=== PATIENT | male | born 1985 | race Hispanic/Latino ===

== ENCOUNTER 2016-09-01 12:22 | Emergency (ER) | payer SELFPAY ==
[~2016-09-01] VITALS: Ht 177.8 cm; Wt 87.4 kg
[2016-09-01 17:08] LABS: POINT-OF-CARE METER ID UU13113800
[2016-09-01] MEDS ORDERED: METFORMIN HCL500 MG PO (18:21)
[2016-09-01 18:35] LABS: EOSINOPHIL (%) 2.2 % (0-5); EOSINOPHIL COUNT 0.2 K/uL (0-0.3); HEMATOCRIT 35.6 % (38.0-50.0); IMMATURE GRANULOCYTE (%) 0.2 % (0.0-0.7); MCH 27.5 PG (29.0-34.0); MCHC 33.4 G/DL (30.0-36.0); MCV 82.2 FL (86-99); MEAN PLAT.VOLUME 11.4 uM^3 (9.0-12.4); MONOCYTE (%) 4.4 % (3-12); MONOCYTE COUNT 0.4 K/uL (0-0.8); NEUTROPHIL (%) 68.7 % (45-76); NEUTROPHIL COUNT 5.6 K/uL (1.8-6.4); PLATELET COUNT 204 K/uL (156-360); RBC DIS.WIDTH-CV 12.6 % (11.8-14.6); RBC DIS.WIDTH-SD 38.2 % (39-53); RED BLOOD COUNT 4.33 M/uL (4.00-5.50); WHITE BLOOD COUNT 8.1 K/uL (4.1-10.2)
[2016-09-01 18:43] LABS: CHLORIDE 105 mEq/L (99-109); POTASSIUM 4.2 mEq/L (3.7-5.4); SODIUM 140 mEq/L (136-147)
[2016-09-01 18:46] LABS: ANION GAP 6 MEQ/L (2-14); ERTH.SED.RATE 74 MM/HR (0-15); GLUCOSE 235 mg/dL (70-99)
[2016-09-01 18:48] LABS: GFR ESTIMATE (CALCULATED) > 59 mL/min/
[2016-09-01 18:49] LABS: UREA NITROGEN (BUN) 12 mg/dL (9-23)
[2016-09-01 19:09] LABS: C-REACTIVE PROTEIN 44.4 MG/L (0-10)
[2016-09-01 21:01] VITALS: BP 109/67
== END 2016-09-01 21:13 | disposition home or self-care (01) ==
LOC: EME 12:22
PROVIDERS: Physician Assistant
DX: M86.9 Osteomyelitis, unspecified (principal); E11.621 Type 2 diabetes mellitus with foot ulcer; L97.519 Non-pressure chronic ulcer of other part of right foot with unspecified severity
CPT/HCPCS: 73630; 80048; 82948; 85025; 85651; 86140; 99281; 99285; J3370

== ENCOUNTER 2016-09-12 16:14 | Emergency (ER) | payer OTHER ==
[~2016-09-12] VITALS: Ht 177.8 cm; Wt 91.6 kg
[~2016-09-12 16:14] MED LIST: METFORMIN HCL500 MG PO
[2016-09-12 17:41] LABS: HEMATOCRIT 32.7 % (38.0-50.0); MCH 27.4 PG (29.0-34.0); MCHC 33.6 G/DL (30.0-36.0); MCV 81.5 FL (86-99); MEAN PLAT.VOLUME 10.1 uM^3 (9.0-12.4); PLATELET COUNT 223 K/uL (156-360); RBC DIS.WIDTH-CV 12.8 % (11.8-14.6); RBC DIS.WIDTH-SD 36.7 % (39-53); RED BLOOD COUNT 4.01 M/uL (4.00-5.50); WHITE BLOOD COUNT 8.4 K/uL (4.1-10.2)
[2016-09-12 17:57] LABS: CHLORIDE 107 mEq/L (99-109); POTASSIUM 3.8 mEq/L (3.7-5.4); SODIUM 143 mEq/L (136-147)
[2016-09-12 17:59] LABS: GLUCOSE 171 mg/dL (70-99)
[2016-09-12 18:00] LABS: ANION GAP 7 MEQ/L (2-14)
[2016-09-12 18:03] LABS: GFR ESTIMATE (CALCULATED) > 59 mL/min/
[2016-09-12 18:04] LABS: UREA NITROGEN (BUN) 10 mg/dL (9-23)
[2016-09-12 18:36] VITALS: BP 158/97
== END 2016-09-12 18:39 | disposition home or self-care (01) ==
LOC: EME 16:14
PROVIDERS: Physician Assistant
DX: R03.0 Elevated blood-pressure reading, without diagnosis of hypertension (principal); R51 Headache; Z79.2 Long term (current) use of antibiotics; Z87.39 Personal history of other diseases of the musculoskeletal system and connective tissue; E11.9 Type 2 diabetes mellitus without complications
CPT/HCPCS: 70450; 80048 91; 85027; 99281; 99282

== ENCOUNTER 2016-10-20 03:35 | Observation (INO) | payer OTHER ==
[~2016-10-20] VITALS: Ht 177.8 cm; Wt 84.6 kg
[~2016-10-20 03:35] MED LIST changes: +HYZAAR 50-121 TABLET PO
[2016-10-20 04:25] LABS: HEMATOCRIT 40.9 % (38.0-50.0); MCH 26.4 PG (29.0-34.0); MCHC 33.3 G/DL (30.0-36.0); MCV 79.3 FL (86-99); MEAN PLAT.VOLUME 11.4 uM^3 (9.0-12.4); PLATELET COUNT 229 K/uL (156-360); RBC DIS.WIDTH-CV 12.2 % (11.8-14.6); RBC DIS.WIDTH-SD 35.1 % (39-53); RED BLOOD COUNT 5.16 M/uL (4.00-5.50); WHITE BLOOD COUNT 10.1 K/uL (4.1-10.2)
[2016-10-20 04:35] LABS: CHLORIDE 98 mEq/L (99-109); POTASSIUM 4.5 mEq/L (3.7-5.4); SODIUM 134 mEq/L (136-147)
[2016-10-20 04:38] LABS: GLUCOSE 270 mg/dL (70-99)
[2016-10-20 04:39] LABS: ANION GAP 18 MEQ/L (2-14)
[2016-10-20 04:40] LABS: TOTAL BILIRUBIN 0.5 mg/dL (0.0-1.0)
[2016-10-20 04:41] LABS: ALKALINE PHOSPHATASE 79 IU/L (3-129); GFR ESTIMATE (CALCULATED) 41 mL/min/
[2016-10-20 04:42] LABS: UREA NITROGEN (BUN) 32 mg/dL (9-23)
[2016-10-20 04:45] LABS: LIPASE 40 U/L (1.0-51.0)
[2016-10-20 05:41] LABS: CARBON DIOXIDE (BICARBONATE) 24.1 MEQ/L (20-31)
[2016-10-20 06:14] LABS: INFLUENZA A VIRAL ANTIGEN NEGATIVE; INFLUENZA B VIRAL ANTIGEN NEGATIVE
[2016-10-20 06:28] LABS: POINT-OF-CARE METER ID UU13113702
[2016-10-20 06:49] LABS: CREATININE 1.7 mg/dL (0.6-1.3)
[2016-10-20 08:17] LABS: POINT-OF-CARE METER ID UU13113702
[2016-10-20 08:23] LABS: CHLORIDE 103 mEq/L (99-109); POTASSIUM 4.3 mEq/L (3.7-5.4)
[2016-10-20 08:24] LABS: SODIUM 135 mEq/L (136-147)
[2016-10-20 08:25] LABS: GLUCOSE 258 mg/dL (70-99)
[2016-10-20 08:27] LABS: ANION GAP 13 MEQ/L (2-14)
[2016-10-20 08:29] LABS: GFR ESTIMATE (CALCULATED) 46 mL/min/
[2016-10-20 08:30] LABS: UREA NITROGEN (BUN) 30 mg/dL (9-23)
[2016-10-20 08:38] LABS: ADD MIUA? YES; BILIRUBIN NEGATIVE; BLOOD SMALL; COLOR YELLOW ((YELLOW)); GLUCOSE (STRIP) 150; KETONES 20; LEUKOCYTES NEGATIVE; NITRITE NEGATIVE; PROTEIN (STRIP) 100; SPECIFIC GRAVITY 1.018 (1.000-1.030); UROBILINOGEN 0.2 MG/DL (0.2-1.0)
[2016-10-20 08:48] LABS: BACTERIA NONE SEEN /HPF; EPITHELIAL CELLS RARE /HPF; HYALINE CASTS 0-5 /LPF; MUCUS TRACE /LPF; UCUL ADDED? NO; WHITE BLOOD CELLS 0-5 /HPF (0-5)
[2016-10-20] MEDS ORDERED: LOSARTAN-HCTZ1 EAC1 PO (08:51)
[2016-10-20] MEDS ORDERED: CIPROFLOXACIN500 M1 PO (08:51)
[2016-10-20 09:59] VITALS: BP 188/90
[2016-10-20 13:10] LABS: POINT-OF-CARE METER ID UU14162513
[2016-10-20 14:11] LABS: Estimated Average Glucose 246 mg/dL (70-123); HEMOGLOBIN A1c (GLYCOHEMOGLOB) 10.2 % HGB (Below 5.7)
[2016-10-20 20:00] VITALS: BP 149/80
[2016-10-20 23:37] VITALS: BP 155/90
[2016-10-21 03:45] VITALS: BP 158/85
[2016-10-21 06:57] LABS: ANION GAP 7 MEQ/L (2-14); CHLORIDE 109 MEQ/L (99-109); GFR ESTIMATE (CALCULATED) 57 mL/min/; HDL CHOLESTEROL 25 MG/DL (Desirable>=40); LDL CHOLESTEROL 31 mg/dL (Desirable<100); NON-HDL CHOLESTEROL 59 mg/dL (Desirable<160); POTASSIUM 3.8 MEQ/L (3.7-5.4); SAMPLE HEMOLYSIS CHECK 0; SAMPLE ICTERIC CHECK 0; SAMPLE LIPEMIA CHECK 0; TOTAL CHOLESTEROL 84 mg/dL (Desirable<200); TRIGLYCERIDES 142 MG/DL (Normal: <150); UREA NITROGEN (BUN) 20 mg/dL (9-23)
[2016-10-21 06:59] LABS: GLUCOSE 122 mg/dL (70-99); SODIUM 142 MEQ/L (136-147)
[2016-10-21 08:20] VITALS: BP 127/78
[2016-10-21] MEDS ORDERED: ZOFRAN4 MG PO (10:38)
== END 2016-10-21 10:59 | disposition home or self-care (01) ==
LOC: EME 03:35 → EDOF 08:35 → 5WEST 09:46
PROVIDERS: Emergency Medicine; Internal Medicine
DX: R11.2 Nausea with vomiting, unspecified (principal); N17.9 Acute kidney failure, unspecified; E87.2 Acidosis; E86.0 Dehydration; E11.65 Type 2 diabetes mellitus with hyperglycemia; I10 Essential (primary) hypertension
CPT/HCPCS: 80047; 80048; 80048 91; 80053; 80061; 81003; 82010; 82803; 82948; 83036; 83605; 83690; 85027; 87502; 99281; 99285; G0378; J0360; J1644; J1815; J2270; J2405; J2765; J7030; S0028

== ENCOUNTER 2016-10-23 17:31 | Observation (INO) | payer OTHER ==
[~2016-10-23] VITALS: Ht 177.8 cm; Wt 82.0 kg
[~2016-10-23 17:31] MED LIST changes: +CIPROFLOXACIN500 M1 PO; +LOSARTAN-HCTZ1 EAC1 PO; +ZOFRAN4 MG PO
[2016-10-23 17:57] LABS: POINT-OF-CARE METER ID UU13113778
[2016-10-23 18:34] LABS: HEMATOCRIT 40.7 % (38.0-50.0); MCH 26.4 PG (29.0-34.0); MCHC 34.2 G/DL (30.0-36.0); MCV 77.2 FL (86-99); MEAN PLAT.VOLUME 10.5 uM^3 (9.0-12.4); PLATELET COUNT 237 K/uL (156-360); RBC DIS.WIDTH-CV 12.1 % (11.8-14.6); RBC DIS.WIDTH-SD 33.7 % (39-53); RED BLOOD COUNT 5.27 M/uL (4.00-5.50); WHITE BLOOD COUNT 10.5 K/uL (4.1-10.2)
[2016-10-23 18:49] LABS: CHLORIDE 99 mEq/L (99-109); POTASSIUM 3.5 mEq/L (3.7-5.4); SODIUM 138 mEq/L (136-147)
[2016-10-23 18:52] LABS: ANION GAP 15 MEQ/L (2-14); GLUCOSE 188 mg/dL (70-99)
[2016-10-23 18:53] LABS: TOTAL BILIRUBIN 0.9 mg/dL (0.0-1.0)
[2016-10-23 18:55] LABS: ALKALINE PHOSPHATASE 79 IU/L (3-129); GFR ESTIMATE (CALCULATED) 50 mL/min/
[2016-10-23 18:56] LABS: UREA NITROGEN (BUN) 22 mg/dL (9-23)
[2016-10-23 20:33] LABS: LIPASE 73 U/L (1.0-51.0)
[2016-10-23 20:37] LABS: ADD MIUA? YES; BILIRUBIN NEGATIVE; BLOOD SMALL; COLOR YELLOW ((YELLOW)); GLUCOSE (STRIP) 50; KETONES 20; LEUKOCYTES NEGATIVE; NITRITE NEGATIVE; PROTEIN (STRIP) >=500; SPECIFIC GRAVITY 1.016 (1.000-1.030); UROBILINOGEN 0.2 MG/DL (0.2-1.0)
[2016-10-23 21:06] LABS: BACTERIA 2+ /HPF; EPITHELIAL CELLS 1+ /HPF; MUCUS RARE /LPF; RED BLOOD CELLS 0-5 /HPF (0-5); UCUL ADDED? NO; WHITE BLOOD CELLS 0-5 /HPF (0-5)
[2016-10-23 23:05] LABS: POINT-OF-CARE METER ID UU13113800
[2016-10-23 23:16] LABS: CARBON DIOXIDE (BICARBONATE) 29.3 MEQ/L (20-31)
[2016-10-24 03:09] LABS: POINT-OF-CARE METER ID UU13113700
[2016-10-24 03:12] VITALS: BP 134/85
[2016-10-24 06:18] LABS: POINT-OF-CARE METER ID UU13113700
[2016-10-24 07:40] LABS: ALKALINE PHOSPHATASE 61 IU/L (3-129); ANION GAP 9 MEQ/L (2-14); CHLORIDE 103 MEQ/L (99-109); GFR ESTIMATE (CALCULATED) > 59 mL/min/; POTASSIUM 3.3 MEQ/L (3.7-5.4); SAMPLE HEMOLYSIS CHECK 0; SAMPLE ICTERIC CHECK 0; SAMPLE LIPEMIA CHECK 0; SODIUM 139 MEQ/L (136-147); TOTAL BILIRUBIN 0.6 MG/DL (0.0-1.0); UREA NITROGEN (BUN) 23 mg/dL (9-23)
[2016-10-24 07:41] LABS: GLUCOSE 111 mg/dL (70-99)
[2016-10-24 08:09] VITALS: BP 134/91
[2016-10-24 12:00] VITALS: BP 146/87
[2016-10-24 13:13] LABS: POINT-OF-CARE METER ID UU13113700
[2016-10-25 12:31] LABS: HEMATOCRIT 34.3 % (38.0-50.0); MCHC 31.5 G/DL (30.0-36.0); PLATELET COUNT 193 K/uL (156-360); RBC DIS.WIDTH-CV 13.2 % (11.8-14.6); RBC DIS.WIDTH-SD 39.5 % (39-53); WHITE BLOOD COUNT 9.3 K/uL (4.1-10.2)
[2016-10-25 13:04] LABS: MCV 82.7 FL (86-99); RED BLOOD COUNT 4.15 M/uL (4.00-5.50)
== END 2016-10-24 14:21 | disposition home or self-care (01) ==
LOC: EME 17:31 → EDOF 10-24 01:09 → 5WEST 10-24 02:35
PROVIDERS: Internal Medicine; Physician Assistant
DX: E86.0 Dehydration (principal); N17.9 Acute kidney failure, unspecified; E87.6 Hypokalemia; R11.2 Nausea with vomiting, unspecified; E11.65 Type 2 diabetes mellitus with hyperglycemia; E11.43 Type 2 diabetes mellitus with diabetic autonomic (poly)neuropathy; K31.84 Gastroparesis; I10 Essential (primary) hypertension
CPT/HCPCS: 74176; 80053; 81003; 82010; 82803; 82948; 83690; 85027; 87086; 99281; 99285; C9113; G0378; J1644; J1815; J2405; J2765; J3480; J7030; S0028

== ENCOUNTER 2016-10-28 14:12 | Emergency (ER) | payer OTHER ==
[~2016-10-28] VITALS: Ht 177.8 cm; Wt 80.5 kg
[2016-10-28 15:20] LABS: HEMATOCRIT 38.2 % (38.0-50.0); MCH 26.1 PG (29.0-34.0); MCHC 33.8 G/DL (30.0-36.0); MEAN PLAT.VOLUME 11.3 uM^3 (9.0-12.4); PLATELET COUNT 236 K/uL (156-360); RBC DIS.WIDTH-CV 12.5 % (11.8-14.6); RBC DIS.WIDTH-SD 34.8 % (39-53); RED BLOOD COUNT 4.95 M/uL (4.00-5.50); WHITE BLOOD COUNT 10.7 K/uL (4.1-10.2)
[2016-10-28 15:21] LABS: MCV 77.2 FL (86-99)
[2016-10-28 15:30] LABS: CHLORIDE 100 mEq/L (99-109); POTASSIUM 3.7 mEq/L (3.7-5.4); SODIUM 137 mEq/L (136-147)
[2016-10-28 15:32] LABS: GLUCOSE 243 mg/dL (70-99)
[2016-10-28 15:33] LABS: ANION GAP 14 MEQ/L (2-14)
[2016-10-28 15:35] LABS: GFR ESTIMATE (CALCULATED) > 59 mL/min/
[2016-10-28 15:36] LABS: UREA NITROGEN (BUN) 22 mg/dL (9-23)
[2016-10-28] MEDS ORDERED: ZOFRAN ODT4 MG PO (18:48)
[2016-10-28] MEDS ORDERED: NAPROSYN500 MG PO (18:48)
[2016-10-28 19:12] VITALS: BP 131/87
== END 2016-10-28 19:13 | disposition home or self-care (01) ==
LOC: EME 14:12
DX: B34.9 Viral infection, unspecified (principal); R11.2 Nausea with vomiting, unspecified; R10.9 Unspecified abdominal pain; E11.9 Type 2 diabetes mellitus without complications; I10 Essential (primary) hypertension
CPT/HCPCS: 80048; 81003; 85027; 99281; 99283

== ENCOUNTER 2017-08-03 06:02 | Emergency (ER) | payer OTHER ==
[~2017-08-03] VITALS: Ht 177.8 cm; Wt 97.6 kg
[~2017-08-03 06:02] MED LIST changes: +NAPROSYN500 MG PO; +ZOFRAN ODT4 MG PO
[2017-08-03 07:35] LABS: HEMATOCRIT 30.6 % (38.0-50.0); HEMOGLOBIN 10.2 G/DL (12.5-16.6); MCH 27.2 PG (29.0-34.0); MCHC 33.3 G/DL (30.0-36.0); MCV 81.6 FL (86-99); PLATELET COUNT 174 K/uL (156-360); RBC DIS.WIDTH-CV 12.8 % (11.8-14.6); RBC DIS.WIDTH-SD 38.5 % (39-53); RED BLOOD COUNT 3.75 M/uL (4.00-5.50)
[2017-08-03 07:51] LABS: CHLORIDE 105 mEq/L (99-109); SODIUM 134 mEq/L (136-147)
[2017-08-03 07:53] LABS: GLUCOSE 281 mg/dL (70-99); TOTAL PROTEIN 5.8 g/dL (6.4-8.3)
[2017-08-03 07:55] LABS: TOTAL BILIRUBIN 0.4 mg/dL (0.0-1.0)
[2017-08-03 07:56] LABS: ALKALINE PHOSPHATASE 82 IU/L (3-129)
[2017-08-03 07:57] LABS: CREATININE 1.9 mg/dL (0.6-1.3); GFR ESTIMATE (CALCULATED) 43 mL/min/ (58.99-99999)
[2017-08-03 07:58] LABS: AST (GOT) 13 IU/L (2-34); UREA NITROGEN (BUN) 45 mg/dL (9-23)
[2017-08-03 08:00] LABS: ALT (GPT) 13 IU/L (3-49); LIPASE 44 U/L (1.0-51.0)
[2017-08-03 08:21] LABS: ALBUMIN 2.8 g/dL (3.2-4.8)
[2017-08-03 09:01] LABS: CARBON DIOXIDE (BICARBONATE) 28.6 MEQ/L (20-31)
[2017-08-03 09:01] LABS: APPEARANCE CLEAR ((CLEAR)); BILIRUBIN NEGATIVE; BLOOD SMALL; COLOR YELLOW ((YELLOW)); GLUCOSE (STRIP) >=500; KETONES NEGATIVE; LEUKOCYTES NEGATIVE; NITRITE NEGATIVE; PROTEIN (STRIP) >=500; SPECIFIC GRAVITY 1.011 (1.000-1.030); UROBILINOGEN 0.2 MG/DL (0.2-1.0)
[2017-08-03 09:22] LABS: BACTERIA NONE SEEN /HPF; EPITHELIAL CELLS RARE /HPF; MUCUS NONE SEEN /LPF; UCUL ADDED? NO; WHITE BLOOD CELLS 0-5 /HPF (0-5)
[2017-08-03] MEDS ORDERED: ZOFRAN ODT4 MG PO (10:19)
[2017-08-03 10:35] LABS: CHLORIDE 107 mEq/L (99-109); POTASSIUM 4.8 mEq/L (3.7-5.4); SODIUM 136 mEq/L (136-147)
[2017-08-03 10:37] LABS: GLUCOSE 235 mg/dL (70-99)
[2017-08-03 10:41] LABS: CREATININE 1.8 mg/dL (0.6-1.3); GFR ESTIMATE (CALCULATED) 46 mL/min/ (58.99-99999); UREA NITROGEN (BUN) 42 mg/dL (9-23)
[2017-08-03 11:05] VITALS: BP 155/92
== END 2017-08-03 11:05 | disposition home or self-care (01) ==
LOC: EME 06:02
PROVIDERS: Nurse Practitioner Family
DX: N20.0 Calculus of kidney (principal); K59.00 Constipation, unspecified; E86.0 Dehydration; R11.10 Vomiting, unspecified; E11.9 Type 2 diabetes mellitus without complications; I10 Essential (primary) hypertension
CPT/HCPCS: 74176; 80048 91; 80053; 81003; 82010; 82803; 83690; 85027; 99281; 99285; J2405; J7030

== ENCOUNTER 2017-08-06 19:40 | Emergency (ER) | payer OTHER ==
[~2017-08-06] VITALS: Ht 177.8 cm; Wt 92.8 kg
[2017-08-06 21:05] LABS: HEMATOCRIT 35.7 % (38.0-50.0); MCHC 34.2 G/DL (30.0-36.0); RBC DIS.WIDTH-CV 12.6 % (11.8-14.6); RBC DIS.WIDTH-SD 35.9 % (39-53); WHITE BLOOD COUNT 10.1 K/uL (4.1-10.2)
[2017-08-06 21:16] LABS: ALBUMIN 3.4 g/dL (3.2-4.8)
[2017-08-06 21:17] LABS: CHLORIDE 102 mEq/L (99-109); POTASSIUM 3.9 mEq/L (3.7-5.4); SODIUM 136 mEq/L (136-147)
[2017-08-06 21:19] LABS: GLUCOSE 230 mg/dL (70-99)
[2017-08-06 21:22] LABS: ALKALINE PHOSPHATASE 93 IU/L (3-129)
[2017-08-06 21:23] LABS: CREATININE 1.7 mg/dL (0.6-1.3); GFR ESTIMATE (CALCULATED) 49 mL/min/ (58.99-99999)
[2017-08-06 21:24] LABS: AST (GOT) 18 IU/L (2-34); UREA NITROGEN (BUN) 30 mg/dL (9-23)
[2017-08-06 21:26] LABS: ALT (GPT) 14 IU/L (3-49)
[2017-08-06 21:29] LABS: TOTAL BILIRUBIN 0.3 mg/dL (0.0-1.0); TOTAL PROTEIN 7.1 g/dL (6.4-8.3)
[2017-08-06 22:05] LABS: APPEARANCE CLOUDY ((CLEAR)); BILIRUBIN NEGATIVE; BLOOD MODERATE; COLOR YELLOW ((YELLOW)); GLUCOSE (STRIP) >=500; KETONES 20; LEUKOCYTES NEGATIVE; NITRITE NEGATIVE; PROTEIN (STRIP) >=500; SPECIFIC GRAVITY 1.025 (1.000-1.030); UROBILINOGEN 0.2 MG/DL (0.2-1.0)
[2017-08-06 22:19] LABS: BACTERIA RARE /HPF; EPITHELIAL CELLS 1+ /HPF; HYALINE CASTS 20-30 /LPF; MUCUS 1+ /LPF; RED BLOOD CELLS 15-20 /HPF (0-5); UCUL ADDED? YES
[2017-08-06 22:22] LABS: HEMOGLOBIN 12.2 G/DL (12.5-16.6); PLATELET COUNT 243 K/uL (156-360); RED BLOOD COUNT 4.52 M/uL (4.00-5.50)
[2017-08-07] MEDS ORDERED: OMEPRAZOLE40 M1 PO (01:11)
[2017-08-07] MEDS ORDERED: ZOFRAN ODT4 MG PO (01:11)
[2017-08-07] MEDS ORDERED: BENTYL20 MG PO (01:11)
[2017-08-07 01:25] VITALS: BP 164/99
[2017-08-07] MEDS ORDERED: PHENERGAN25 MG PR (14:19)
[2017-08-07] MEDS ORDERED: BENTYL10 MG PO (14:19)
== END 2017-08-07 01:26 | disposition home or self-care (01) ==
LOC: EME 19:40
DX: R10.13 Epigastric pain (principal); R11.2 Nausea with vomiting, unspecified; E11.9 Type 2 diabetes mellitus without complications; Z87.442 Personal history of urinary calculi
CPT/HCPCS: 74176; 80053; 81003; 85027; 87086; 99281; 99284; J2405; J3010; J7030

== ENCOUNTER 2017-08-07 10:58 | Emergency (ER) | payer OTHER ==
[~2017-08-07] VITALS: Ht 177.8 cm; Wt 93.6 kg
[~2017-08-07 10:58] MED LIST changes: +BENTYL20 MG PO; +OMEPRAZOLE40 M1 PO
[2017-08-07 11:43] LABS: APPEARANCE SL.HAZY ((CLEAR)); BILIRUBIN NEGATIVE; BLOOD SMALL; COLOR YELLOW ((YELLOW)); GLUCOSE (STRIP) 150; KETONES 5; LEUKOCYTES NEGATIVE; NITRITE NEGATIVE; PROTEIN (STRIP) >=500; SPECIFIC GRAVITY 1.018 (1.000-1.030); UROBILINOGEN 0.2 MG/DL (0.2-1.0)
[2017-08-07 11:47] LABS: BACTERIA RARE /HPF; EPITHELIAL CELLS RARE /HPF; MUCUS NONE SEEN /LPF; UCUL ADDED? NO; WHITE BLOOD CELLS 0-5 /HPF (0-5)
[2017-08-07 12:01] LABS: HEMATOCRIT 35.4 % (38.0-50.0); HEMOGLOBIN 12.2 G/DL (12.5-16.6); MCH 27.2 PG (29.0-34.0); MCHC 34.5 G/DL (30.0-36.0); PLATELET COUNT 260 K/uL (156-360); RBC DIS.WIDTH-CV 12.5 % (11.8-14.6); RBC DIS.WIDTH-SD 35.7 % (39-53); RED BLOOD COUNT 4.48 M/uL (4.00-5.50); WHITE BLOOD COUNT 12.4 K/uL (4.1-10.2)
[2017-08-07 12:10] LABS: ALBUMIN 3.5 g/dL (3.2-4.8); CHLORIDE 102 mEq/L (99-109); POTASSIUM 3.9 mEq/L (3.7-5.4); SODIUM 137 mEq/L (136-147)
[2017-08-07 12:12] LABS: GLUCOSE 207 mg/dL (70-99)
[2017-08-07 12:13] LABS: TOTAL PROTEIN 7.5 g/dL (6.4-8.3)
[2017-08-07 12:15] LABS: TOTAL BILIRUBIN 0.4 mg/dL (0.0-1.0)
[2017-08-07 12:16] LABS: ALKALINE PHOSPHATASE 95 IU/L (3-129); CREATININE 1.7 mg/dL (0.6-1.3); GFR ESTIMATE (CALCULATED) 49 mL/min/ (58.99-99999)
[2017-08-07 12:17] LABS: UREA NITROGEN (BUN) 31 mg/dL (9-23)
[2017-08-07 12:18] LABS: AST (GOT) 20 IU/L (2-34)
[2017-08-07 12:19] LABS: ALT (GPT) 15 IU/L (3-49)
[2017-08-07] MEDS ORDERED: PHENERGAN25 MG PR (14:19)
[2017-08-07] MEDS ORDERED: BENTYL10 MG PO (14:19)
[2017-08-07 18:46] VITALS: BP 145/70
== END 2017-08-07 18:46 | disposition home or self-care (01) ==
LOC: EME 10:58
DX: B34.9 Viral infection, unspecified (principal); E11.9 Type 2 diabetes mellitus without complications
CPT/HCPCS: 80053; 81003; 85027; 99281; 99284; J2405; J7030

== ENCOUNTER 2017-11-12 14:37 | Inpatient (IN) | payer OTHER ==
[~2017-11-12] VITALS: Ht 177.8 cm; Wt 92.0 kg
[~2017-11-12 14:37] MED LIST changes: +BENTYL10 MG PO; +PHENERGAN25 MG PR
[2017-11-12 15:55] LABS: BASOPHIL (%) 0.2 % (0-1); EOSINOPHIL (%) 0.1 % (0-5); HEMATOCRIT 34.7 % (38.0-50.0); HEMOGLOBIN 11.7 G/DL (12.5-16.6); IMMATURE GRANULOCYTE (%) 0.5 % (0.0-0.7); LYMPHOCYTE (%) 6.7 % (15-42); LYMPHOCYTE COUNT 1.1 K/uL (1.0-2.8); MCHC 33.7 G/DL (30.0-36.0); MONOCYTE COUNT 0.5 K/uL (0-0.8); NEUTROPHIL (%) 89.5 % (45-76); NEUTROPHIL COUNT 14.8 K/uL (1.8-6.4); PLATELET COUNT 225 K/uL (156-360); RBC DIS.WIDTH-CV 13.6 % (11.8-14.6); RBC DIS.WIDTH-SD 39.8 % (39-53); RED BLOOD COUNT 4.34 M/uL (4.00-5.50); WHITE BLOOD COUNT 16.5 K/uL (4.1-10.2)
[2017-11-12 15:58] LABS: CARBON DIOXIDE (BICARBONATE) 26.3 MEQ/L (20-31)
[2017-11-12 16:08] LABS: ALBUMIN 3.3 g/dL (3.2-4.8)
[2017-11-12 16:09] LABS: CHLORIDE 107 mEq/L (99-109); POTASSIUM 4.4 mEq/L (3.7-5.4); SODIUM 140 mEq/L (136-147)
[2017-11-12 16:11] LABS: GLUCOSE 270 mg/dL (70-99); TOTAL PROTEIN 6.9 g/dL (6.4-8.3)
[2017-11-12 16:13] LABS: TOTAL BILIRUBIN 0.3 mg/dL (0.0-1.0)
[2017-11-12 16:14] LABS: ALKALINE PHOSPHATASE 109 IU/L (3-129)
[2017-11-12 16:15] LABS: CREATININE 2.8 mg/dL (0.6-1.3); GFR ESTIMATE (CALCULATED) 28 mL/min/ (58.99-99999)
[2017-11-12 16:16] LABS: AST (GOT) 17 IU/L (2-34); UREA NITROGEN (BUN) 37 mg/dL (9-23)
[2017-11-12 16:17] LABS: ALT (GPT) 14 IU/L (3-49)
[2017-11-12 16:18] LABS: LIPASE 17 U/L (1.0-51.0)
[2017-11-12] MEDS ORDERED: DEPRESSION MED PO (16:57)
[2017-11-12] MEDS ORDERED: METFORMIN HCL500 MG PO (16:57)
[2017-11-12] MEDS ORDERED: NOVOLIN,HU100 UNITS/ SC (16:57)
[2017-11-12 18:22] LABS: HEMATOCRIT 32.8 % (38.0-50.0); HEMOGLOBIN 10.9 G/DL (12.5-16.6); MCH 26.7 PG (29.0-34.0); MCHC 33.2 G/DL (30.0-36.0); MCV 80.2 FL (86-99); PLATELET COUNT 216 K/uL (156-360); RBC DIS.WIDTH-CV 13.6 % (11.8-14.6); RBC DIS.WIDTH-SD 39.4 % (39-53); RED BLOOD COUNT 4.09 M/uL (4.00-5.50); WHITE BLOOD COUNT 14.5 K/uL (4.1-10.2)
[2017-11-12 22:27] VITALS: BP 187/95
[2017-11-12 23:47] VITALS: BP 142/82
[2017-11-13] VITALS: BP 178/96
[2017-11-13 07:06] LABS: ALBUMIN 2.6 G/DL (3.2-4.8); ALKALINE PHOSPHATASE 75 IU/L (3-129); ALT (GPT) 9 IU/L (3-49); AST (GOT) 13 IU/L (2-34); CHLORIDE 107 MEQ/L (99-109); CREATININE 2.7 MG/DL (0.6-1.3); GFR ESTIMATE (CALCULATED) 29 mL/min/ (58.99-99999); SODIUM 143 MEQ/L (136-147); TOTAL BILIRUBIN 0.3 MG/DL (0.0-1.0); TOTAL PROTEIN 5.2 G/DL (6.4-8.3); UREA NITROGEN (BUN) 37 mg/dL (9-23)
[2017-11-13 07:08] LABS: GLUCOSE 99 mg/dL (70-99)
[2017-11-13 07:50] VITALS: BP 167/94
[2017-11-13 10:10] LABS: CREATINE KINASE 723 IU/L (1-294); HDL CHOLESTEROL 34 MG/DL (Desirable>=40); LDL CHOLESTEROL 108 mg/dL (Desirable<100); NON-HDL CHOLESTEROL 150 mg/dL (Desirable<160); TOTAL CHOLESTEROL 184 mg/dL (Desirable<200); TRIGLYCERIDES 212 MG/DL (Normal: <150)
[2017-11-13 12:39] LABS: HEMOGLOBIN A1c (GLYCOHEMOGLOB) 9.5 % (Below 5.7)
[2017-11-13 15:40] VITALS: BP 156/89
[2017-11-13 19:35] VITALS: BP 157/86
[2017-11-14] VITALS (8 sets, daily range): BP systolic 132–178; BP diastolic 70–98
[2017-11-14 06:16] LABS: BASOPHIL (%) 0.4 % (0-1); EOSINOPHIL (%) 1.5 % (0-5); EOSINOPHIL COUNT 0.1 K/uL (0-0.3); HEMATOCRIT 31.6 % (38.0-50.0); HEMOGLOBIN 10.3 G/DL (12.5-16.6); IMMATURE GRANULOCYTE (%) 0.3 % (0.0-0.7); LYMPHOCYTE (%) 26.3 % (15-42); LYMPHOCYTE COUNT 2.4 K/uL (1.0-2.8); MCH 26.7 PG (29.0-34.0); MCHC 32.6 G/DL (30.0-36.0); MCV 81.9 FL (86-99); MONOCYTE (%) 8.9 % (3-12); MONOCYTE COUNT 0.8 K/uL (0-0.8); NEUTROPHIL (%) 62.6 % (45-76); NEUTROPHIL COUNT 5.7 K/uL (1.8-6.4); PLATELET COUNT 200 K/uL (156-360); RBC DIS.WIDTH-CV 13.7 % (11.8-14.6); RBC DIS.WIDTH-SD 40.7 % (39-53); RED BLOOD COUNT 3.86 M/uL (4.00-5.50); WHITE BLOOD COUNT 9.2 K/uL (4.1-10.2)
[2017-11-14 07:00] LABS: ALBUMIN 2.5 G/DL (3.2-4.8); ALKALINE PHOSPHATASE 74 IU/L (3-129); ALT (GPT) 9 IU/L (3-49); AST (GOT) 14 IU/L (2-34); CHLORIDE 107 MEQ/L (99-109); CREATININE 2.4 MG/DL (0.6-1.3); GFR ESTIMATE (CALCULATED) 33 mL/min/ (58.99-99999); GLUCOSE 132 mg/dL (70-99); MAGNESIUM 1.8 mg/dl (1.3-2.7); SODIUM 142 MEQ/L (136-147); UREA NITROGEN (BUN) 32 mg/dL (9-23)
[2017-11-14 07:05] LABS: TOTAL BILIRUBIN 0.2 MG/DL (0.0-1.0)
[2017-11-14 14:34] LABS: APPEARANCE CLEAR ((CLEAR)); BILIRUBIN NEGATIVE; BLOOD SMALL; COLOR YELLOW ((YELLOW)); GLUCOSE (STRIP) 150; KETONES NEGATIVE; LEUKOCYTES NEGATIVE; NITRITE NEGATIVE; PROTEIN (STRIP) >=500; SPECIFIC GRAVITY 1.011 (1.000-1.030); UROBILINOGEN 0.2 MG/DL (0.2-1.0)
[2017-11-14 14:51] LABS: BACTERIA NONE SEEN /HPF; EPITHELIAL CELLS RARE /HPF; MUCUS TRACE /LPF; RED BLOOD CELLS 0-5 /HPF (0-5); WHITE BLOOD CELLS 0-5 /HPF (0-5)
[2017-11-14 15:21] LABS: UR CREATININE CONCENTRATION 88.6 MG/DL
[2017-11-15 07:07] LABS: BASOPHIL (%) 0.3 % (0-1); EOSINOPHIL (%) 0.8 % (0-5); EOSINOPHIL COUNT 0.1 K/uL (0-0.3); HEMATOCRIT 30.8 % (38.0-50.0); IMMATURE GRANULOCYTE (%) 0.4 % (0.0-0.7); LYMPHOCYTE (%) 19.5 % (15-42); LYMPHOCYTE COUNT 2.1 K/uL (1.0-2.8); MCHC 32.5 G/DL (30.0-36.0); MONOCYTE (%) 8.7 % (3-12); MONOCYTE COUNT 0.9 K/uL (0-0.8); NEUTROPHIL (%) 70.3 % (45-76); NEUTROPHIL COUNT 7.5 K/uL (1.8-6.4); PLATELET COUNT 189 K/uL (156-360); RBC DIS.WIDTH-CV 13.2 % (11.8-14.6); RBC DIS.WIDTH-SD 38.6 % (39-53); RED BLOOD COUNT 3.85 M/uL (4.00-5.50); WHITE BLOOD COUNT 10.6 K/uL (4.1-10.2)
[2017-11-15 07:24] VITALS: BP 163/92
[2017-11-15 07:35] LABS: CHLORIDE 107 MEQ/L (99-109); CREATININE 2.5 MG/DL (0.6-1.3); GFR ESTIMATE (CALCULATED) 32 mL/min/ (58.99-99999); POTASSIUM 3.9 MEQ/L (3.7-5.4); SODIUM 141 MEQ/L (136-147); UREA NITROGEN (BUN) 35 mg/dL (9-23)
[2017-11-15 07:36] LABS: GLUCOSE 95 mg/dL (70-99)
[2017-11-15 08:49] LABS: CREATINE KINASE 517 IU/L (1-294)
[2017-11-15 16:08] VITALS: BP 184/78
[2017-11-15 21:57] VITALS: BP 159/83
[2017-11-16 00:46] VITALS: BP 149/70
[2017-11-16 06:46] LABS: BASOPHIL (%) 0.5 % (0-1); EOSINOPHIL (%) 1.4 % (0-5); EOSINOPHIL COUNT 0.1 K/uL (0-0.3); HEMATOCRIT 33.8 % (38.0-50.0); IMMATURE GRANULOCYTE (%) 0.6 % (0.0-0.7); LYMPHOCYTE (%) 25.7 % (15-42); LYMPHOCYTE COUNT 2.2 K/uL (1.0-2.8); MCH 26.3 PG (29.0-34.0); MCHC 32.5 G/DL (30.0-36.0); MCV 80.9 FL (86-99); MONOCYTE (%) 9.7 % (3-12); MONOCYTE COUNT 0.8 K/uL (0-0.8); NEUTROPHIL (%) 62.1 % (45-76); NEUTROPHIL COUNT 5.2 K/uL (1.8-6.4); PLATELET COUNT 215 K/uL (156-360); RBC DIS.WIDTH-CV 13.4 % (11.8-14.6); RBC DIS.WIDTH-SD 39.4 % (39-53); RED BLOOD COUNT 4.18 M/uL (4.00-5.50); WHITE BLOOD COUNT 8.4 K/uL (4.1-10.2)
[2017-11-16 06:55] VITALS: BP 156/86
[2017-11-16 07:04] LABS: CHLORIDE 107 MEQ/L (99-109); CREATININE 2.5 MG/DL (0.6-1.3); GFR ESTIMATE (CALCULATED) 32 mL/min/ (58.99-99999); GLUCOSE 83 mg/dL (70-99); POTASSIUM 3.8 MEQ/L (3.7-5.4); SODIUM 141 MEQ/L (136-147); UREA NITROGEN (BUN) 27 mg/dL (9-23)
[2017-11-16 15:30] VITALS: BP 137/89
[2017-11-17 01:07] VITALS: BP 147/86
[2017-11-17 05:53] LABS: BASOPHIL (%) 0.3 % (0-1); EOSINOPHIL (%) 1.6 % (0-5); EOSINOPHIL COUNT 0.2 K/uL (0-0.3); HEMATOCRIT 31.4 % (38.0-50.0); HEMOGLOBIN 10.3 G/DL (12.5-16.6); IMMATURE GRANULOCYTE (%) 0.4 % (0.0-0.7); LYMPHOCYTE (%) 19.3 % (15-42); LYMPHOCYTE COUNT 1.8 K/uL (1.0-2.8); MCH 26.4 PG (29.0-34.0); MCHC 32.8 G/DL (30.0-36.0); MCV 80.5 FL (86-99); MONOCYTE (%) 8.9 % (3-12); MONOCYTE COUNT 0.8 K/uL (0-0.8); NEUTROPHIL (%) 69.5 % (45-76); NEUTROPHIL COUNT 6.5 K/uL (1.8-6.4); PLATELET COUNT 177 K/uL (156-360); RBC DIS.WIDTH-CV 13.4 % (11.8-14.6); RBC DIS.WIDTH-SD 39.3 % (39-53); WHITE BLOOD COUNT 9.3 K/uL (4.1-10.2)
[2017-11-17 06:31] LABS: CHLORIDE 105 MEQ/L (99-109); CREATININE 2.4 MG/DL (0.6-1.3); GFR ESTIMATE (CALCULATED) 33 mL/min/ (58.99-99999); GLUCOSE 96 mg/dL (70-99); POTASSIUM 3.9 MEQ/L (3.7-5.4); SODIUM 135 MEQ/L (136-147); UREA NITROGEN (BUN) 28 mg/dL (9-23)
[2017-11-17 07:30] VITALS: BP 159/90
[2017-11-17] MEDS ORDERED: NOVOLOG 10100 UNITS/ SC (11:35)
[2017-11-17] MEDS ORDERED: LOSARTAN POTASS50 MG PO (12:05)
[2017-11-17] MEDS ORDERED: PROCARDIA XL30 MG PO (12:05)
[2017-11-17] MEDS ORDERED: BASAGLAR K100 UNIT/1 SC (13:47)
[2017-11-17] MEDS ORDERED: PEPCID40 MG PO (14:29)
[2017-11-17] MEDS ORDERED: HUMALOG100 UNIT/1 SC (15:05)
== END 2017-11-17 16:45 | disposition home or self-care (01) | DRG 683 ==
LOC: EME 14:37 → EDOF 17:44 → 5EAST 17:44 → ENRESERV 17:45 → 5EAST 18:37 → ENRESERV 19:09 → EDOF 19:10 → 5EAST 22:00 → ENPENDDIS 11-17 → 5EAST 11-17 16:45
PROVIDERS: Emergency Medicine; Hospitalist; Internal Medicine; Internal Medicine Nephrology
PROC: 0DJ08ZZ Inspection of Upper Intestinal Tract, Via Natural or Artificial Opening Endoscopic (ICD-10-PCS; principal; 2017-11-16)
DX: N17.9 Acute kidney failure, unspecified (principal); D63.8 Anemia in other chronic diseases classified elsewhere; D72.829 Elevated white blood cell count, unspecified; E11.22 Type 2 diabetes mellitus with diabetic chronic kidney disease; I12.9 Hypertensive chronic kidney disease with stage 1 through stage 4 chronic kidney disease, or unspecified chronic kidney disease; N18.3 Chronic kidney disease, stage 3 (moderate); E11.43 Type 2 diabetes mellitus with diabetic autonomic (poly)neuropathy; K31.84 Gastroparesis; E11.65 Type 2 diabetes mellitus with hyperglycemia; E78.5 Hyperlipidemia, unspecified; E86.0 Dehydration; K21.0 Gastro-esophageal reflux disease with esophagitis; K29.70 Gastritis, unspecified, without bleeding; K92.0 Hematemesis; Z79.4 Long term (current) use of insulin; Z83.3 Family history of diabetes mellitus; Z91.19 Patient's noncompliance with other medical treatment and regimen; R19.7 Diarrhea, unspecified; N20.0 Calculus of kidney
CPT/HCPCS: 70450; 74176; 76705; 80048; 80053; 80061; 80076; 81003; 82010; 82550; 82570; 82803; 82948; 83036; 83690; 83735; 84100; 84156; 85025; 85027; 87086; 87338; 93005; 99281; 99285; C9113; J1644; J1815; J2250; J2405; J2765; J7030; J7120; S0028